=== PATIENT | female | born 1975 | race Caucasian/White ===

== ENCOUNTER 2017-02-23 18:56 | Emergency (ER) | payer OTHER ==
[~2017-02-23] VITALS: Ht 170.2 cm; Wt 61.3 kg
[~2017-02-23 18:56] MED LIST: HYDR-4452 PO; LANS30EC3 PO; METH500T14 PO; MSCON30 PO; SYN.025 PO; TOPI200T7 PO
[2017-02-23 19:25] VITALS: BP 115/74
--- NOTE | 2017-02-23 21:09 | NUR ---
PT TAKEN TO BED 8
--- NOTE | 2017-02-23 21:15 | NUR ---
PT IS A 41 Y/O F WITH C/O SEVERE PAIN ON LLQ ABDOMEN. DENIES ANY FEVER, CHILLS, N/V/D. MED HX SEIZURES, HYPOTHYROIDISM, AND ACID REFLEX.
--- NOTE | 2017-02-23 21:25 | NUR ---
Dr. Peña evaluating patient at bedside.
[2017-02-23] MEDS ORDERED: MORPHINE SULFATE 2 MG/ML SYR IVP ONE (21:30)
[2017-02-23] MEDS ORDERED: ONDANSETRON 4 MG/2 ML VIAL IVP ONE (21:30)
[2017-02-23] MEDS ORDERED: NACL 0.9% 1,000 ML IV ONE (21:30)
--- NOTE | 2017-02-23 21:39 | NUR ---
PT TAKEN TO CT
--- NOTE | 2017-02-23 21:54 | NUR ---
PT RETURN FROM CT
[2017-02-23 22:35] LABS: BASOPHILS # (AUTO) 0.1 K/uL (0.00-0.22); BASOPHILS % (AUTO) 2.4 % (0.0-2.0); EOSINOPHILS # (AUTO) 0.1 K/uL (0-0.4); EOSINOPHILS % (AUTO) 2.5 % (0.0-4.0); HEMATOCRIT 39.6 % (36-48); HEMOGLOBIN 12.7 g/dL (12.0-16.0); LYMPHOCYTES # (AUTO) 2.2 K/uL (2.5-16.5); MEAN CORPUSCULAR HEMOGLOBIN 28 pg (27-31); MEAN CORPUSCULAR HGB CONC 32 g/dL (33-37); MEAN CORPUSCULAR VOLUME 88 fL (80-94); MONOCYTES # (AUTO) 0.3 K/uL (0.8-1.0); MONOCYTES % (AUTO) 4.5 % (1.7-9.3); NEUTROPHILS # (AUTO) 3.1 K/uL (1.8-7.7); NEUTROPHILS % (AUTO) 52.6 % (42.2-75.2); PLATELET COUNT (AUTO) 221 K/uL (140-450); RED BLOOD CELL COUNT(AUTO) 4.53 MIL/uL (4.20-5.40); RED CELL DISTRIBUTION WIDTH 12.5 % (11.6-13.7); WHITE BLOOD COUNT (AUTO) 5.8 K/uL (4.8-10.8)
[2017-02-23 22:46] LABS: ANION GAP 12.6 (8-16); CALCIUM 8.8 mg/dL (8.5-10.1); CARBON DIOXIDE 21.2 mmol/L (21-32); CREATININE 1.1 mg/dL (0.6-1.3); POTASSIUM 3.8 mmol/L (3.5-5.1)
[2017-02-23 22:52] LABS: ALBUMIN 3.9 g/dL (3.4-5.0); TOTAL BILIRUBIN 0.2 mg/dL (0.0-1.0); TOTAL PROTEIN, SERUM 7.6 g/dL (6.4-8.2)
[2017-02-23 22:55] LABS: INR 1.1 (0.8-1.2); PARTIAL THROMBOPLASTIN TIME 28.7 secs (22-35.6); PROTHROMBIN TIME 10.4 secs (10.8-13.4)
[2017-02-23 23:30] VITALS: BP 115/65
--- NOTE | 2017-02-23 23:30 | NUR ---
Patient discharged with v/s stable. Written and verbal after care instructions given and explained. Patient alert, oriented and verbalized understanding of instructions. Ambulatory with steady gait. All questions addressed prior to discharge. ID band removed. Patient advised to follow up with PMD. Rx of MAGNESIUM CITRATE, TRAMADOL HYDROCHLORIDE, MIRALAX POWDER SOLUTION given. Patient educated on indication of medication including possible reaction and side effects. Opportunity to ask questions provided and answered.
== END 2017-02-23 23:30 | disposition home or self-care (01) ==
LOC: MED 18:56
DX: K59.00 Constipation, unspecified (principal); K21.9 Gastro-esophageal reflux disease without esophagitis; Z88.6 Allergy status to analgesic agent; E03.9 Hypothyroidism, unspecified
CPT/HCPCS: 36415; 74176; 80053; 81002; 81025; 85025; 85610; 85730; 96361; 96374; 96375; 99285; J2270; J2405; J7030